=== PATIENT | male | born 1960 | race African-American/Black ===

== ENCOUNTER 2019-11-10 20:12 | Emergency (ER) | payer MEDICAID, SELFPAY ==
--- NOTE | ~2019-11-10 | CT_ITS ---
EXAMINATION: CTA BRAIN/CAROTID DATE: 11/10/2019 21:40 INDICATION: Dizziness and headache TECHNIQUE: Computed tomographic angiography (CTA) of the head and neck was performed with 100 mL Omni paque-350 intravenous contrast. Multiplanar reconstructions and maximum intensity projection 3D-recon structions of the carotid arteries and of the intracranial arteries were created by the technologist on a separate workstation. Precontrast CT of the head was also obtained. Automated exposure control and iterative reconstruction technique were employed.The dose-length product was 1766.46 mGy-cm. COMPARISON: None. FINDINGS: Carotid arteries: There is 0% stenosis of the right carotid bulb relative to normal distal artery lumen diameter (NASCE T criteria). There is 0% stenosis of the left carotid bulb relative to normal distal artery lumen enrrique meter. Normal anatomic variant aberrant retroesophageal right subclavian artery. Left vertebral arter y is dominant. Mild emphysema in the upper lung zones. Cervical soft tissues are unremarkable. Modera te mid cervical spondylosis. Head: No acute intracranial hemorrhage, acute infarction or abnormal extra axial fluid collection. Ventricl es are normal and symmetric. No mass/mass effect. The orbits, paranasal sinuses and mastoid air cells are normal. No abnormally enhancing brain lesions. Intracranial arteries Minimal atherosclerotic plaque at the bilateral carotid siphons. There is no hemodynamically signific ant stenosis in the vertebral, basilar and internal carotid arteries. The left vertebral artery is do minant. There are no aneurysms identified. Both A1 and P1 segments are patent. Are also patent bilat eral posterior communicating arteries. Cerebral arterial arborization appears symmetric. IMPRESSION: 1. 0% stenosis of the left and right carotid bulbs relative to normal distal artery lumen diameter (N ASCET criteria). 2. Normal brain. No acute intracranial process. 3. Minimal atherosclerotic plaque at the bilateral carotid siphons. No hemodynamically significant s tenosis or aneurysm. 4. Mild emphysema. Reviewed, dictated and finalized at location A. IMPRESSION: 1. 0% stenosis of the left and right carotid bulbs relative to normal distal ar lara lumen diameter (NASCET criteria). 2. Normal brain. No acute intracranial process. 3. Minimal atherosclerotic plaque at the bilateral carotid siphons. No hemodyn amically significant stenosis or aneurysm. 4. Mild emphysema.
--- NOTE | ~2019-11-10 | XR_ITS ---
EXAMINATION: XR chest 2V DATE: 11/10/2019 20:54 INDICATION: Shortness of breath, dizziness, chest pain and weakness TECHNIQUE: PA and lateral views of the chest were obtained. COMPARISON: None FINDINGS: Linear atelectasis/scarring extending across the right midlung zone. No other airspace opacities, pul monary edema, pleural effusion or pneumothorax. The cardiomediastinal silhouette is normal. IMPRESSION: 1. Mild linear discoid atelectasis/scarring the right midlung zone. No other acute cardiopulmonary di sease. Reviewed, dictated and finalized at location A. IMPRESSION: 1. Mild linear discoid atelectasis/scarring the right midlung zone. No other ac dinah cardiopulmonary disease.
[2019-11-10 20:17] VITALS: BP 152/87; PULSE 76; RESP 18; TEMP 35.9; O2SAT 99
[2019-11-10 20:24] VITALS: BP 143/92; PULSE 68; RESP 20; O2SAT 97
--- NOTE | 2019-11-10 20:35 | ECG_ITS ---
Measurements Intervals [place] Rate: 72 P: 78 PA: 203 QRS: 26 QRSD: 82 T: 18 QT: 401 QTc: 439 Interpretive Statements SINUS RHYTHM VOLTAGE CRITERIA FOR LVH INFERIOR INFARCT, AGE INDETERMINATE ABNORMAL ECG Electronically Signed On 11-11-2019 8:24:22 CDT by Rj Maloney D.O.
--- NOTE | 2019-11-10 20:38 | ED.GENADULT ---
HPI - General Adult General Chief complaint: Unspecified Stated complaint: headache, back pain, sob Time Seen by Provider: 11/10/19 20:20 Source: patient Mode of arrival: ambulatory Limitations: no limitations History of Present Illness HPI narrative: This patient is a 59 year old male with history chronic back pain, Coronary artery disease who presents for evaluation of headache, dizziness and sob. Patient reports for the past couple of weeks he has sob with exertion. He also reports he develops dizziness after becoming sob. He denies associated chest pain, cough, fever, chills, vomiting or focal deficits with this. He initially describes this dizziness as lightheaded ness. He also reports now he is having vertigo but he denies URI symptoms. Onset (ago): week(s) (2) Related Data Home Medications Medication Instructions Recorded Confirmed atorvastatin 40 mg PO HS 11/10/19 11/10/19 finasteride 5 mg PO DAILY 11/10/19 11/10/19 lisinopril 10 mg PO DAILY 11/10/19 11/10/19 metoprolol succinate 25 mg PO DAILY 11/10/19 11/10/19 oxycodone-acetaminophen 10 - 325 tablet PO TID 11/10/19 11/10/19 pregabalin 75 mg PO DAILY 11/10/19 11/10/19 tamsulosin 0.4 mg PO DAILY 11/10/19 11/10/19 trazodone 50 mg PO HS 11/10/19 11/10/19 Allergies Allergy/AdvReac Type Severity Reaction Status Date / Time No Known Allergies Allergy Unverified 03/26/16 01:51 Review of Systems Review of Systems: All systems reviewed & are unremarkable except as noted in HPI and below Constitutional: Constitutional: Denies chills and Denies fever(s) Eyes: Eyes: Reports no additional eye complaints ENT: Denies nasal congestion and Denies sore throat Cardiovascular: Cardiovascular: Denies chest pain Respiratory: Respiratory: Denies chest congestion, Denies cough, Reports dyspnea and Denies wheezing Gastrointestinal: Gastrointestinal: Denies abdominal pain, Denies diarrhea, Reports nausea and Denies vomiting Genitourinary: Genitourinary: Denies hematuria, Denies oliguria and Denies dysuria Musculoskeletal: Musculoskeletal: Reports back pain (chronic) Neurologic: Reports dizziness, Reports headache(s), Denies focal weakness and Denies numbness PMFSH Past Medical History Medical History (Updated 11/10/19 @ 23:21 by Lelo Salas MD) CAD (coronary artery disease) Pneumothorax Surgical History Surgical History (Updated 11/10/19 @ 20:40 by Lelo Salas MD) H/O heart artery stent Previous back surgery Social History Social History (Updated 11/10/19 @ 20:40 by Lelo Salas MD) Smoking status: Former smoker Exam Const: General: healthy appearing, no acute distress and alert Orientation/consciousness: patient oriented x3 HENMT: Head: normocephalic and atraumatic Ears: TM normal on the left and TM abnormal with fluid behind the TM on the right Face and sinus: face symmetric Mouth: Yes Normal oral and palatal mucosa present, Yes lip normal and Yes oropharynx normal Throat: posterior oropharynx normal, tonsils normal and uvula midline Eyes: Pupils: Equal, round and reactive pupils present EOM: EOMs intact bilaterally Other: no nystagmus Neck: Neck: normal visual inspection and no lymphadenopathy Chest: Chest palpation & inspection: normal inspection of the chest Resp: Effort & Inspection: normal respiratory effort, no retractions and no use of accessory muscles Auscultation: clear to auscultation bilaterally Cardio: Rate: regular rate Rhythm: regular rhythm Heart sounds: no murmurs GI: GI Palp: Yes Soft to palpation, No Tenderness to palpation present (GI), No Guarding due to palpation present (GI), No Rigid due to palpation and No Hernia present Back/Spine/Pelvis: Back: no CVA tenderness Skin: General skin exam: normal color Rashes: no rashes Neuro: General: patient oriented x3, moves all extremities, no meningeal signs, no focal motor deficits and CN's II-XI intact bilaterally Cranial nerv
[2019-11-10 20:47] LABS: Basophils Absolute Auto 0.1 K/mm3 (0.0-0.1); Basophils Percent Auto 0.8 % (0.2-1.2); Eosinophils Absolute Auto 0.3 K/mm3 (0-0.3); Eosinophils Percent Auto 4.5 % (0-4.4); Hematocrit 41.6 % (42.0-52.0); Hemoglobin 13.9 g/dL (14.0-18.0); Immature Granulocyte Absolute 0.02 K/mm3 (0.00-0.031); Immature Granulocyte Percent A 0.3 % (0-0.5); Lymphocytes Absolute Auto 2.52 K/mm3 (0.9-3.2); Lymphocytes Percent Auto 42.2 % (18.3-44.2); Mean Corpuscular HGB Conc 33.4 g/dl (32-36); Mean Corpuscular Hemoglobin 29.8 pg (26-34); Mean Corpuscular Volume 89.3 fl (80-100); Mean Platelet Volume 10.3 fl (7.4-10.4); Monocytes Absolute Auto 0.6 K/mm3 (0.1-0.6); Monocytes Percent Auto 9.5 % (2.6-8.5); Neutrophils Absolute Auto 2.5 K/mm3 (1.3-6.7); Neutrophils Percent Auto 42.7 % (45.5-73.1); Platelet Count Result 277 k/mm3 (150-375); Red Blood Count 4.66 M/mm3 (4.6-6.20); Red Cell Distribution Width 13.4 % (11.5-14.5)
[2019-11-10] MEDS: ONDANSETRON INJ 4 MG/2 ML VIAL IV PUSH (20:56)
[2019-11-10] MEDS: MECLIZINE HCL 25 MG TABLET PO (20:56)
[2019-11-10 20:57] VITALS: BP 127/83; BP 130/89; BP 132/88; PULSE 72; PULSE 73; PULSE 76
[2019-11-10 20:57] LABS: Prothrombin Time 12.6 Seconds (11.1-14.7)
[2019-11-10 20:58] LABS: Alanine Aminotransferase 36 U/L (4-50); Albumin Level 4.2 g/dL (3.5-5.1); Alkaline Phosphatase 61 U/L (38-126); Anion Gap 10 mmol/L (8-16); Aspartate Amino Transferase 33 U/L (17-59); Bilirubin,Total 0.4 mg/dL (0.2-1.3); Blood Urea Nitrogen 18 mg/dL (9-20); Calcium 8.9 mg/dL (8.4-10.2); Carbon Dioxide 24 mmol/L (22-30); Chloride 104 mmol/L (98-107); Estimated Glomerular Filt Rate > 60; Glucose 121 mg/dL (75-110); Partial Thromboplastin Time 32.1 SECONDS (22.3-36.8); Potassium 4.1 mmol/L (3.4-5.0); Sodium 138 mmol/L (137-145)
[2019-11-10 21:06] LABS: NT Pro B Type Natriuretic Pept 150 PG/ML (5-100)
[2019-11-10 21:49] LABS: Add Urine Microscopic? NO; Appearance Urine Clear (Clear); Bilirubin Urine Negative (Negative); Blood Urine Negative (Negative); Color Urine Straw (Yellow); Glucose Urine UA Negative (Negative); Ketones Urine Negative (Negative); Leukocyte Esterase Ur Negative LEU/UL (Negative); Nitrate Urine Negative (Negative); Protein Urine Negative (Negative); Specific Grav Ur 1.026 (1.001-1.035); Urobilinogen Urine Negative mg/dL (<2.0)
[2019-11-10] MEDS: PROMETHAZINE HCL 25 MG/ML AMPUL 12.5 MG IV PUSH (22:21)
[2019-11-10] MEDS: SODIUM CHLORIDE 0.9% IV 1,000 ML 999 ML IV CONT (22:24)
[2019-11-10] MEDS: KETOROLAC 15 MG/ML VIAL (*BKC) IV PUSH (22:32)
[2019-11-10 22:51] VITALS: BP 138/96; PULSE 64; RESP 20; O2SAT 100
[2019-11-11 00:07] VITALS: BP 129/87; PULSE 69; RESP 18; O2SAT 98
== END 2019-11-11 00:12 | disposition home or self-care (01) ==
PROVIDERS: Emergency Provider General Practice
DX: R51.9 Headache, unspecified (principal); R42 Dizziness and giddiness; I25.10 Atherosclerotic heart disease of native coronary artery without angina pectoris; Z95.5 Presence of coronary angioplasty implant and graft; Z87.891 Personal history of nicotine dependence; R94.31 Abnormal electrocardiogram [ECG] [EKG]
CPT/HCPCS: 36415; 70496; 70498; 71046; 80053; 81003; 83880; 85025; 85380; 85610; 85730; 93005; 96365; 96375; 99284; A9270; J0131; J1885; J2405; J2550; J7030; Q9967

== ENCOUNTER 2020-02-14 02:46 | Emergency (ER) | payer MEDICAID, SELFPAY ==
--- NOTE | ~2020-02-14 | XR_ITS ---
XR chest 2V 02/14/2020 04:04 Indication: Shortness of breath and dizziness Procedure: PA and lateral views of the chest Comparison: 11/10/2019 Findings: Heart size normal. Stable linear/nodular scarring right mid and lower lung zone. There is l eft basilar atelectasis. Heart size normal. No edema or pneumothorax. No pleural effusion. Impression: 1: Left basilar atelectasis. 2: Stable scarring right mid lung zone. Reviewed, dictated and finalized at location A. ERTY FIELD INSPECTOR Impression: 1: Left basilar atelectasis. 2: Stable scarring right mid lung zone.
[2020-02-14 02:48] VITALS: BP 153/93; PULSE 64; RESP 16; TEMP 36; O2SAT 100
--- NOTE | 2020-02-14 03:37 | ECG_ITS ---
Measurements Intervals [place] Rate: 58 P: 78 SD: 196 QRS: 41 QRSD: 88 T: 35 QT: 450 QTc: 444 Interpretive Statements SINUS BRADYCARDIA VOLTAGE CRITERIA FOR LVH INFERIOR INFARCT, AGE INDETERMINATE BASELINE ARTIFACT- I, II, III, AVR, AVL, AVF ABNORMAL ECG Electronically Signed On 02-14-2020 7:18:15 INDUSTRIAL ORDER CLERK by Rj Maloney D.O.
--- NOTE | 2020-02-14 03:55 | ED.GENADULT ---
HPI - General Adult General Chief complaint: Dizziness Stated complaint: dizziness, groin pain, back pain Time Seen by Provider: 02/14/20 03:01 History of Present Illness HPI narrative: Patient is a 59-year-old male who presents ER for 3 complaints. First complaint is dizziness ongoing for last 3 days. It is intermittent, is worse with movement, last for several minutes at a time. No associated symptoms of numbness or tingling or weakness. He has had no chest pain or shortness of breath or racing the heart. No sweats/nausea/vomiting. No ear pressure or ringing in the ears. Has not had this previously. Patient also reports some chronic low back pain without any recent injury. No lower extremity numbness or tingling. Patient also reports some suprapubic/left inguinal discomfort with normal passage of stool and urination. No trauma. He sees his PCP for this today. Related Data Home Medications Medication Instructions Recorded Confirmed atorvastatin 40 mg PO HS 11/10/19 11/10/19 finasteride 5 mg PO DAILY 11/10/19 11/10/19 lisinopril 10 mg PO DAILY 11/10/19 11/10/19 metoprolol succinate 25 mg PO DAILY 11/10/19 11/10/19 oxycodone-acetaminophen 10 - 325 tablet PO TID 11/10/19 11/10/19 pregabalin 75 mg PO DAILY 11/10/19 11/10/19 tamsulosin 0.4 mg PO DAILY 11/10/19 11/10/19 trazodone 50 mg PO HS 11/10/19 11/10/19 Allergies Allergy/AdvReac Type Severity Reaction Status Date / Time No Known Allergies Allergy Unverified 03/26/16 01:51 Review of Systems Review of Systems: All systems reviewed & are unremarkable except as noted in HPI and below Constitutional: Constitutional: Denies chills, Denies fever(s) and Denies weakness ENT: Reports dizziness, Denies nasal congestion and Denies sore throat Cardiovascular: Cardiovascular: Denies chest pain, Denies rapid heart rate and Denies radiating jaw, neck or arm pain Respiratory: Respiratory: Denies cough and Denies dyspnea Gastrointestinal: Gastrointestinal: Reports abdominal pain, Denies constipation, Denies diarrhea, Denies nausea and Denies vomiting Genitourinary: Genitourinary: Denies dysuria and Denies urinary frequency Musculoskeletal: Musculoskeletal: Reports back pain and Denies muscle cramps PMFSH Past Medical History Medical History (Updated 02/14/20 @ 06:07 by Chad Bruno MD) CAD (coronary artery disease) Pneumothorax Surgical History Surgical History (Updated 11/10/19 @ 20:40 by Lelo Salas MD) H/O heart artery stent Previous back surgery Social History Social History (Updated 11/10/19 @ 20:40 by Lelo Salas MD) Smoking status: Former smoker Exam Narrative: Exam Narrative: GENERAL: Well-appearing, well-nourished, and in no acute distress. HEAD: Normocephalic, atraumatic. EYES: EOMI. ENT: TMs normal bilaterally with mild cerumen in left ear canal. CHEST: Clear to auscultation. No respiratory distress. HEART: Regular rate and rhythm. Normal peripheral pulses. ABDOMEN: Soft, nontender, nondistended. No inguinal lymphadenopathy or hernia Back: No midline tenderness of thoracic or lumbar spine. Mild left paraspinal muscular tenderness. EXTREMITIES: Normal range of motion. No edema. SKIN: Warm, dry, no rash. NEURO: No focal deficits. Alert and oriented x3. Course Course Emergency Course: Back pain improved with Toradol. Dizziness improved with meclizine. Patient did not provide a urine sample. He feels like he is ready to be discharged home. He is already got himself dressed. Vital Signs Vital signs: Vital Signs Temperature 96.8 F L 02/14/20 02:48 Pulse Rate 64 02/14/20 02:48 Respiratory Rate 16 02/14/20 02:48 Blood Pressure 153/93 H 02/14/20 02:48 Pulse Oximetry 100 02/14/20 02:48 Temperature 96.8 F L 02/14/20 02:48 Pulse Rate 64 02/14/20 02:48 Respiratory Rate 16 02/14/20 02:48 Blood Pressure 153/93 H 02/14/20 02:48 Pulse Oximetry 100 02/14/20 02:48 Medical Decision Making
[2020-02-14] MEDS: KETOROLAC 15 MG/ML VIAL (*BKC) IV PUSH (03:56)
[2020-02-14] MEDS: MECLIZINE HCL 25 MG TABLET PO (03:56)
[2020-02-14 04:17] LABS: Basophils Absolute Auto 0.1 K/mm3 (0.0-0.1); Basophils Percent Auto 1.2 % (0.2-1.2); Eosinophils Absolute Auto 0.2 K/mm3 (0-0.3); Eosinophils Percent Auto 4.1 % (0-4.4); Hematocrit 42.6 % (42.0-52.0); Hemoglobin 14.3 g/dL (14.0-18.0); Immature Granulocyte Absolute 0.02 K/mm3 (0.00-0.031); Immature Granulocyte Percent A 0.4 % (0-0.5); Lymphocytes Absolute Auto 2.44 K/mm3 (0.9-3.2); Lymphocytes Percent Auto 43.3 % (18.3-44.2); Mean Corpuscular HGB Conc 33.6 g/dl (32-36); Mean Corpuscular Hemoglobin 29.8 pg (26-34); Mean Corpuscular Volume 88.8 fl (80-100); Mean Platelet Volume 10.3 fl (7.4-10.4); Monocytes Absolute Auto 0.6 K/mm3 (0.1-0.6); Monocytes Percent Auto 10.1 % (2.6-8.5); Neutrophils Absolute Auto 2.3 K/mm3 (1.3-6.7); Neutrophils Percent Auto 40.9 % (45.5-73.1); Platelet Count Result 269 k/mm3 (150-375); Red Cell Distribution Width 13.9 % (11.5-14.5); White Blood Count 5.6 K/mm3 (4.5-10.0)
[2020-02-14 04:36] LABS: Anion Gap 6 mmol/L (8-16); Blood Urea Nitrogen 22 mg/dL (9-20); Calcium 9.1 mg/dL (8.4-10.2); Carbon Dioxide 30 mmol/L (22-30); Chloride 105 mmol/L (98-107); Estimated CRCL calculation 64 ml/min; Estimated Glomerular Filt Rate > 60; Glucose 114 mg/dL (75-110); Potassium 3.6 mmol/L (3.4-5.0); Sodium 141 mmol/L (137-145)
[2020-02-14 04:47] LABS: Troponin I < 0.012 ng/mL (0.000-0.034)
[2020-02-14 06:13] VITALS: BP 148/72; PULSE 88; RESP 18; O2SAT 99
== END 2020-02-14 06:15 | disposition home or self-care (01) ==
PROVIDERS: Emergency Provider Emergency Medicine
DX: H81.10 Benign paroxysmal vertigo, unspecified ear (principal); G89.29 Other chronic pain; M54.5 Low back pain; R94.31 Abnormal electrocardiogram [ECG] [EKG]; I25.10 Atherosclerotic heart disease of native coronary artery without angina pectoris; Z95.5 Presence of coronary angioplasty implant and graft
CPT/HCPCS: 36415; 71046; 80048; 84484; 85025; 93005; 96374; 99284; A9270; J1885

== ENCOUNTER 2021-05-08 16:45 | Emergency (ER) | payer MEDICAID, SELFPAY ==
--- NOTE | ~2021-05-08 | XR_ITS ---
EXAMINATION: XR chest 2V DATE: 05/08/2021 19:04 INDICATION: Cough and shortness of breath. TECHNIQUE: Frontal and lateral views of the chest were obtained. COMPARISON: Chest 2 views 02/14/20, CT abdomen and pelvis 03/26/2016 FINDINGS: There is mild atelectasis versus scarring in right lower lung zone. No pleural effusion or pneumothorax. The heart size is normal. IMPRESSION: 1. Mild atelectasis versus scarring in right lower lung zone. Reviewed, dictated and finalized at location A.
[2021-05-08 16:59] VITALS: BP 100/68; PULSE 86; RESP 16; TEMP 36.2; O2SAT 98
--- NOTE | 2021-05-08 18:58 | ECG_ITS ---
Measurements Intervals [place] Rate: 87 P: 55 [place]: 184 QRS: 13 QRSD: 79 T: 37 QT: 388 QTc: 468 Interpretive Statements SINUS RHYTHM INFERIOR INFARCTION, AGE INDETERMINATE BASELINE ARTIFACT ABNORMAL ECG COMPARED TO ECG 02/14/2020 03:53:24 SINUS RHYTHM NOW PRESENT Electronically Signed On 05-09-2021 16:39:57 CDT by Kenny Olivas M.D.
--- NOTE | 2021-05-08 19:00 | ED.URI ---
HPI - URI/Sore Throat General Chief Complaint: Upper Respiratory Infection Stated Complaint: flu-like symptoms, red eye Time Seen by Provider: 05/08/21 18:45 History of Present Illness HPI Narrative: Patient is a 60 year old male with a history of CAD s/p stents (pt unsure of exact date), spontaneous pneumothorax R, former smoking who presents for evaluation of a productive cough, rhinorrhea, and body aches x 7 days, worsening over he past day. States today he felt somewhat short of breath after the coughing fits which prompted his ED visit. Denies sick contacts at home. Denies fever, hemoptysis, history of malignancy, any chest pain, diaphoresis. His dyspnea is not exertional and is present after his cough only. Denies similar presentation when he had his previous [place]. Has not been vaccinated against flu but received his COVID vaccine and booster 3 months ago. Tried some of his [place] for his body aches with good relief, which he takes for chronic back pain. Additionally, patient is reporting an erythematous right eye x 3 days with some crusting in the morning. Denies obvious trigger or trauma. No eye pain, blurry vision, pain with EOMs, eye swelling, itching. Related Data Home Medications Medication Instructions Recorded Confirmed atorvastatin 40 mg PO HS 11/10/19 11/10/19 finasteride 5 mg PO DAILY 11/10/19 11/10/19 lisinopril 10 mg PO DAILY 11/10/19 11/10/19 metoprolol succinate 25 mg PO DAILY 11/10/19 11/10/19 oxycodone-acetaminophen 10 - 325 tablet PO TID 11/10/19 11/10/19 pregabalin 75 mg PO DAILY 11/10/19 11/10/19 tamsulosin 0.4 mg PO DAILY 11/10/19 11/10/19 trazodone 50 mg PO HS 11/10/19 11/10/19 Allergies Allergy/AdvReac Type Severity Reaction Status Date / Time No Known Allergies Allergy Unverified 03/26/16 01:51 Review of Systems Review of Systems: All systems reviewed & are unremarkable except as noted in HPI and below PMFSH Past Medical History Medical History CAD (coronary artery disease) Pneumothorax Surgical History Surgical History H/O heart artery stent Previous back surgery Social History Social History (Updated 11/10/19 @ 20:40 by Lelo Salas MD) Smoking status: Former smoker Exam Const: General: no acute distress and alert Orientation/consciousness: patient oriented x3 HENMT: Head: normal to inspection General nose exam: Normal nares present and Nasal discharge present Mouth: Yes moist mucous membranes Eyes: Conjunctivae: conjunctival abnormality right conjunctival injection and discharge (watery) EOM: EOMs intact bilaterally Direct Ophthalmoscopy: no photophobia Other: Pupils are 2 mm but reactive to light. Fluorescein exam with no discrete area of uptake. Neck: Neck: normal visual inspection and no lymphadenopathy Chest: Chest palpation & inspection: normal inspection of the chest Resp: Effort & Inspection: normal respiratory effort, no retractions, not tachypneic and no use of accessory muscles Auscultation: no wheezes and diminished lung sounds diffuse Cardio: Rate: regular rate Rhythm: regular rhythm GI: GI Palp: Yes Soft to palpation, No Tenderness to palpation present (GI) and No Guarding due to palpation present (GI) Back/Spine/Pelvis: Back: no CVA tenderness Skin: General skin exam: normal color Rashes: no rashes Neuro: General: patient oriented x3 and moves all extremities Extrem: General: normal to inspection and no pedal edema Psych: Mental Status: mental status grossly normal Attitude: cooperative Course Vital Signs Vital signs: Vital Signs Temperature 97.2 F L 05/08/21 16:59 Pulse Rate 86 05/08/21 16:59 Respiratory Rate 16 05/08/21 16:59 Blood Pressure 100/68 05/08/21 16:59 Pulse Oximetry 98 05/08/21 16:59 Temperature 97.2 F L 05/08/21 16:59 Pulse Rate 84 05/08/21 21:33 Respiratory Rate 1
[2021-05-08 20:58] LABS: Influenza A QL RT-PCR Negative (Negative); Influenza B QL RT-PCR Negative (Negative); SARS-CoV-2 RNA PCR Negative
[2021-05-08 21:10] VITALS: BP 121/85
[2021-05-08] MEDS: FLUORESCEIN SOD 1 MG/STRIP EACH EYE (21:10)
[2021-05-08 21:33] VITALS: PULSE 84; RESP 16; O2SAT 96
== END 2021-05-08 21:34 | disposition home or self-care (01) ==
PROVIDERS: Physician Assistant; Emergency Provider Emergency Medicine
DX: J06.9 Acute upper respiratory infection, unspecified (principal); H10.9 Unspecified conjunctivitis; Z20.822 Contact with and (suspected) exposure to COVID-19; I25.10 Atherosclerotic heart disease of native coronary artery without angina pectoris; Z95.5 Presence of coronary angioplasty implant and graft; Z87.891 Personal history of nicotine dependence; R94.31 Abnormal electrocardiogram [ECG] [EKG]
CPT/HCPCS: 71046; 87502; 87804; 93005; 99283; C9803; U0003; U0005